=== PATIENT | male | born 1985 | race African-American/Black ===

== ENCOUNTER 2022-05-31 02:05 | Emergency (ER) | payer SELFPAY ==
[~2022-05-31] VITALS: Ht 182.9 cm; Wt 99.3 kg
[2022-05-31 02:07] VITALS: BP 128/91
== END 2022-05-31 04:00 | disposition left against medical advice (07) ==
LOC: ER 02:05
DX: Z53.21 Procedure and treatment not carried out due to patient leaving prior to being seen by health care provider (principal); Z98.890 Other specified postprocedural states
CPT/HCPCS: 93005

== ENCOUNTER 2024-01-18 09:20 | Emergency (ER) | payer OTHER ==
[~2024-01-18] VITALS: Ht 177.8 cm; Wt 70.0 kg
[2024-01-18 09:22] VITALS: O2SAT 97
[2024-01-18 11:00] VITALS: BP 118/66; PULSE 71; RESP 16; TEMP 97.5
== END 2024-01-18 13:18 | disposition home or self-care (01) ==
LOC: ER 09:30
DX: Z04.89 Encounter for examination and observation for other specified reasons (principal); Z98.890 Other specified postprocedural states
CPT/HCPCS: 74018; 93005; 99283; Z7610